=== PATIENT | male | born 1960 | race Caucasian/White ===

== ENCOUNTER 2019-05-12 14:28 | Emergency (ER) | payer OTHER, BC, SELFPAY ==
--- NOTE | 2019-05-12 14:31 | ED.UPPEXIN ---
HPI - Extremity Injury (Upper) General Chief Complaint: Wound/Laceration Stated Complaint: Cut on right thumb Time Seen by Provider: 05/12/19 15:05 Source: patient and RN notes reviewed Mode of arrival: ambulatory Limitations: no limitations History of Present Illness HPI narrative: 58-year-old male presents with concern for laceration to the palmar aspect of his right hand at the base of his thumb. Reports he cut it on a metal kruger while at work several hours ago. He is not up-to-date on his tetanus vaccine. complaint: injury to: right and hand Related Data Home Medications Medication Instructions Recorded Confirmed amlodipine 2.5 mg PO DAILY 05/12/19 05/12/19 Allergies Allergy/AdvReac Type Severity Reaction Status Date / Time Penicillins Allergy Unknown Verified 05/12/19 15:11 Review of Systems Review of Systems: Narrative: CONSTITUTIONAL: Denies malaise, chills, sweats, or fever. SKIN: Reports laceration to the base of his right thumb on the palmar aspect MUSCULOSKELETAL: Denies decreased function, sensation in hand or digits NEUROLOGIC: Denies numbness, weakness. All systems reviewed & are unremarkable except as noted in HPI and below PMFSH Comments At time of signature, agree with nursing past medical, surgical, social and family history. There is no relevant family history pertinent to the presenting complaint Exam Narrative: Exam Narrative: GENERAL: Well-appearing, well-nourished, and in no acute distress. HEAD: Normocephalic EYES: PERRLA, conjunctivae clear ENT: Mucous membranes moist. NECK: Supple. CHEST: No respiratory distress. Speaks in full sentences. HEART: Regular rate and rhythm. Normal peripheral pulses. EXTREMITIES: Right hand and digits of hand have normal strength and sensation. 5/5 strength with digit flexion, extension. Range of motion normal. No clubbing, cyanosis, or edema noted. No tenderness. Skin intact. Normal digital cascade with flexion of fingers, median, ulnar and radial nerve intact. Normal sensation of each side of finger. Can perform 'okay' sign, 'cross over finger test of index and middle fingers' and 'thumbs up' sign. No scissoring. Normal thumb opposition. Good capillary refill and radial pulse. Distal capillary refill <3 seconds. SKIN: Warm, dry, no rash. 2 cm linear laceration into the subcutaneous tissue noted on the palmar aspect of the right hand beneath the first digit, no neurovascular compromise noted NEURO: Alert and oriented x3. PSYCH: Normal mood and affect Course Course Emergency Course: Patient is aware of diagnosis, understands and agrees to treatment plan. Anticipatory guidance given. Patient agrees to follow-up as directed and is aware of reasons to seek care at the emergency department. Portions of this record may have been created with voice recognition software Vital Signs Vital signs: Vital Signs Temperature 98.5 F 05/12/19 15:03 Pulse Rate 85 05/12/19 15:03 Respiratory Rate 20 05/12/19 15:03 Blood Pressure 147/92 H 05/12/19 15:03 Pulse Oximetry 98 05/12/19 15:03 Temperature 98.5 F 05/12/19 15:03 Pulse Rate 85 05/12/19 15:03 Respiratory Rate 05/12/19 15:03 Blood Pressure 147/92 H 05/12/19 15:03 Pulse Oximetry 98 05/12/19 15:03 Reviewed. Pt has been instructed to follow up with his primary care provider within the next week regarding his elevated blood pressure today. Procedures Laceration Laceration 1: Date: 05/12/19 Time: 15:10 Site: hand Side (If applicable): right Size (cm): 2 Description: linear Depth: simple, single layer Local Anesthetic: lidocaine 1% Amount of anesthesia used (mL): 3 Pre-repair: wound explored and irrigated ====== Skin Level ====== Skin layer closed with: other (ethilon) Size (cm): 4-0 Number of sutures: 4 Technique: simple, interrupted ====== Subcutaneous Layer ====== =
[2019-05-12 15:03] VITALS: BP 147/92; PULSE 85; RESP 20; TEMP 36.9; O2SAT 98
[2019-05-12] MEDS: TETANUS,DIPHTHERIA,AC PERTUSSIS ADULT 0.5 ML (ADACEL) IM (15:26)
== END 2019-05-12 15:39 | disposition home or self-care (01) ==
PROVIDERS: Emergency Provider Nurse Practitioner
DX: S61.011A Laceration without foreign body of right thumb without damage to nail, initial encounter (principal); W26.8XXA Contact with other sharp object(s), not elsewhere classified, initial encounter; Y99.0 Civilian activity done for income or pay; Z23 Encounter for immunization
CPT/HCPCS: 12001; 90471; 90715; 99202; G0463

== ENCOUNTER 2019-05-20 15:18 | Emergency (ER) | payer OTHER, SELFPAY ==
--- NOTE | 2019-05-20 15:26 | ED.SKABFB ---
HPI - Skin/Abscess/Foreign Bdy General Chief complaint: Skin/Abscess/Foreign Body Stated complaint: remove stitches Time Seen by Provider: 05/20/19 15:29 Source: patient and RN notes reviewed Mode of arrival: ambulatory Limitations: no limitations History of Present Illness HPI narrative: 58-year-old male presents for suture removal. Received sutures to the palmar aspect of his right hand beneath his first digit 8 days ago. Denies any complications, drainage, redness. MD complaint: other (Suture removal) Related Data Home Medications Medication Instructions Recorded Confirmed amlodipine 2.5 mg PO DAILY 05/12/19 05/12/19 Allergies Allergy/AdvReac Type Severity Reaction Status Date / Time Penicillins Allergy Unknown Verified 05/12/19 15:11 Review of Systems Review of Systems: Narrative: CONSTITUTIONAL: Denies malaise, chills, sweats, or fever. CARDIOVASCULAR: Denies chest pain, palpitations RESPIRATORY: Denies cough or dyspnea. SKIN: Reports healing laceration to the palmar aspect of the base of the right thumb MUSCULOSKELETAL: Denies pain NEUROLOGIC: Denies numbness, weakness. All systems reviewed & are unremarkable except as noted in HPI and below PMFSH Comments At time of signature, agree with nursing past medical, surgical, social and family history. There is no relevant family history pertinent to the presenting complaint Exam Narrative: Exam Narrative: GENERAL: Well-appearing, well-nourished, and in no acute distress. HEAD: Normocephalic EYES: PERRLA, conjunctivae clear ENT: Mucous membranes moist. NECK: Supple. CHEST: No respiratory distress. Speaks in full sentences. HEART: Normal peripheral pulses. EXTREMITIES: Digits of right hand have normal range of motion, no edema, normal strength and sensation. SKIN: Warm, dry, no rash. 2 cm healing laceration with 4 intact sutures, well approximated to the base of the first digit of the right hand on the palmar aspect, no erythema, edema, induration, drainage noted. NEURO: Alert and oriented x3. PSYCH: Normal mood and affect Course Course Emergency Course: Patient is aware of diagnosis, understands and agrees to treatment plan. Anticipatory guidance given. Patient agrees to follow-up as directed and is aware of reasons to seek care at the emergency department. Portions of this record may have been created with voice recognition software Vital Signs Vital signs: Vital Signs Temperature 97.8 F 05/20/19 15:28 Pulse Rate 86 05/20/19 15:28 Respiratory Rate 20 05/20/19 15:28 Blood Pressure 149/89 H 05/20/19 15:28 Pulse Oximetry 99 05/20/19 15:28 Temperature 97.8 F 05/20/19 15:28 Pulse Rate 86 05/20/19 15:28 Respiratory Rate 20 05/20/19 15:28 Blood Pressure 149/89 H 05/20/19 15:28 Pulse Oximetry 99 05/20/19 15:28 Reviewed. Patient has history of hypertension MDM - Skin/Abscess/Foreign Bdy MDM Narrative Medical decision making narrative: Verbal consent was obtained. Wound well approximated, no erythema, induration, or discharge noted. 4 completely removed in a sterile fashion. Patient tolerated procedure well, no complications. Patient advised to look for and return for any signs of infection such as redness, swelling, discharge, or worsening pain. Exam findings show no acute concerns or changes; patient is non-toxic appearing and is in no distress. Patient is appropriate for outpatient treatment and follow-up. Critical Care Time Critical Care Time Critical Care Time: No Discharge Plan Discharge Clinical Impression: Encounter for removal of sutures Patient Disposition: Home, Self-Care Condition: Stable Instructions: Stitches Removal (ED) Additional Instructions: AFTER the stitches are removed: Clean your wound as directed. Carefully wash your wound with soap and water. Pat the area dry with a clean towel. Protect your wound. Your wound can swell, bleed, or split open if it is stretched or bumped. You may ne
[2019-05-20 15:28] VITALS: BP 149/89; PULSE 86; RESP 20; TEMP 36.6; O2SAT 99
== END 2019-05-20 15:42 | disposition home or self-care (01) ==
PROVIDERS: Emergency Provider Nurse Practitioner
DX: S61.411D Laceration without foreign body of right hand, subsequent encounter (principal); X58.XXXD Exposure to other specified factors, subsequent encounter; I10 Essential (primary) hypertension
CPT/HCPCS: 99211; G0463